=== PATIENT | female | born 1965 | race Caucasian/White ===

== ENCOUNTER 2017-03-26 21:06 | Emergency (ER) | payer MEDICAID, OTHER ==
[2017-03-26 21:35] LABS: ABSOLUTE BASOPHILS # (AUTO) 0.1 10^3/uL (0.0-0.2); ABSOLUTE EOSINOPHILS # (AUTO) 0.2 10^3/uL (0.0-0.6); ABSOLUTE LYMPHOCYTES (AUTO) 3.4 10^3/uL (0.5-4.7); ABSOLUTE MONOCYTES (AUTO) 0.6 10^3/uL (0.1-1.4); ABSOLUTE NEUT (AUTO) 3.1 10^3/uL (1.7-8.2); BASOPHILS % (AUTO) 1.2 % (0-2); EOSINOPHILS % (AUTO) 2.3 % (0-6); HEMATOCRIT 42.5 % (36.0-47.0); HEMOGLOBIN 14.5 g/dL (12.0-15.5); LYMPHOCYTES % (AUTO) 46.5 % (13-45); MEAN CORPUSCULAR HEMOGLOBIN 30.9 pg (27.0-33.4); MEAN CORPUSCULAR HGB CONC 34.2 g/dL (32.0-36.0); MEAN CORPUSCULAR VOLUME 90 fl (80-97); MONOCYTES % (AUTO) 8.3 % (3-13); RED CELL DISTRIBUTION WIDTH 14.2 % (11.5-14.0); SEGMENTED NEUTROPHILS % (AUTO) 41.7 % (42-78); WHITE BLOOD COUNT 7.3 10^3/uL (4.0-10.5)
[2017-03-26 21:46] LABS: PARTIAL THROMBOPLASTIN TIME 26.6 SEC (23.5-35.8); PROTHROMBIN TIME 12.9 SEC (11.4-15.4)
[2017-03-26 22:02] LABS: ALANINE AMINOTRANSFERASE 101 U/L (9-52); ALBUMIN 4.8 g/dL (3.5-5.0); ALCOHOL < 10 mg/dL (NONE DETECTED); ALKALINE PHOSPHATASE 116 U/L (38-126); ANION GAP 13 (5-19); ASPARTATE AMINO TRANSFERASE 102 U/L (14-36); BILIRUBIN,DIRECT 0.5 mg/dL (0.0-0.4); BILIRUBIN,TOTAL 0.7 mg/dL (0.2-1.3); BLOOD UREA NITROGEN 17 mg/dL (7-20); CALCIUM 10.5 mg/dL (8.4-10.2); CARBON DIOXIDE 26 mmol/L (22-30); CHLORIDE 99 mmol/L (98-107); CREATINE KINASE 96 U/L (30-135); GLUCOSE 114 mg/dL (75-110); POTASSIUM 4.1 mmol/L (3.6-5.0); TOTAL PROTEIN 9.5 g/dL (6.3-8.2)
[2017-03-26 22:13] LABS: CREATINE KINASE MB 0.71 ng/mL (<4.55)
[2017-03-26 22:14] LABS: TROPONIN I < 0.012 ng/mL
--- NOTE | 2017-03-26 22:30 | ER Document Report ---
ED General - General Chief Complaint: S/S of Possible Stroke Stated Complaint: STROKE LIKE SYMPTOMS Time Seen by Provider: 03/26/17 21:43 Notes: Patient is a 51-year-old female past medical history of PNES, depression, anxiety, seizures, hypertension who presents with a 45 minute episode of unstoppable crying. Patient states she does not recall this episode but family at the bedside states that she was intermittently talking during the episode. She has history of similar episodes in the past. No noted loss of consciousness , tonic-clonic jerking, or postictal phase. She has not seen her primary care doctor regarding today's concerns. No obvious trigger for today's episode. At time of my assessment she denies any acute concerns or complaints. Past Medical History - General Information source: Patient - Social History Smoking Status: Current Every Day Smoker Frequency of alcohol use: None Drug Abuse: None Lives with: Spouse/Significant other Family History: Reviewed & Not Pertinent Review of Systems - Review of Systems Notes: Constitutional: Negative for fever. HENT: Negative for sore throat. Eyes: Negative for visual changes. Cardiovascular: Negative for chest pain. Respiratory: Negative for shortness of breath. Gastrointestinal: Negative for abdominal pain, vomiting or diarrhea. Genitourinary: Negative for dysuria. Musculoskeletal: Negative for back pain. Skin: Negative for rash. Neurological: Negative for headaches, weakness or numbness. 10 point ROS negative except as marked above and in HPI. Physical Exam - Vital signs Vitals: Resp Pulse Ox 18 84 L 03/26/17 21:19 03/26/17 21:19 Patient was not hypoxic at time of arrival this is inaccurately recorded vital sign. Interpretation: Normal Notes: PHYSICAL EXAMINATION: GENERAL: Well-appearing, well-nourished and in no acute distress. HEAD: Atraumatic, normocephalic. EYES: Pupils equal round and reactive to light, extraocular movements intact, sclera anicteric, conjunctiva are normal. ENT: nares patent, oropharynx clear without exudates. Moist mucous membranes. NECK: Normal range of motion, supple without lymphadenopathy LUNGS: Breath sounds clear to auscultation bilaterally and equal. No wheezes rales or rhonchi. HEART: Regular rate and rhythm without murmurs ABDOMEN: Soft, nontender, normoactive bowel sounds. No guarding, no rebound. No masses appreciated. EXTREMITIES: Normal range of motion, no pitting or edema. No cyanosis. NEUROLOGICAL: Face symmetric. Tongue protrudes midline. Extraocular motions intact. Pupils are 2 mm and equally reactive. Normal speech, normal gait. 5 out of 5 strength in both the distal and proximal upper and lower extremities bilaterally. Sensation is grossly intact throughout. Finger to nose testing normal. Pronator drift normal. PSYCH: Normal mood, normal affect. SKIN: Warm, Dry, normal turgor, no rashes or lesions noted. Course - Re-evaluation Re-evalutation: 03/26/17 22:27 Patient presents with symptoms had a history consistent with PNES. Clinical history is inconsistent with an epileptic seizure and I do not believe any imaging or labs as indicated. [facility] department for assessment for panel labs and CT imaging of the head was obtained which are noted to be unremarkable with exception of mild LFT elevations which I do not suspect a clinically significant patient's presentation. Neurologic exam unremarkable without any focal neurologic deficits. No trauma sustained during today's episode. The patient does have a history of similar episodes in the past as well as a psychiatric history.At this time will discharge with return precautions and follow-up recommendations. Verbal discharge instructions given a the bedside and opportunity for questions given. Medication warnings reviewed. Patient is in agreement with this plan and has verbalized understanding of return precautions and the need for primary care follow-up in the next 24-72 hours. - Vital Signs Vital signs: Temp Pulse Resp BP Pulse Ox 98.2 F 14 167/104 H 98 03/26/17 22:35 03/26/17 22:45 03/26/17 22:45 03/26/17 22:45 - Laboratory Result Diagrams: 03/26/17 21:28 03/26/17 21:28 Laboratory results interpreted by me: 03/26/17 03/26/17 21:28 21:28 RDW 14.2 H Seg Neutrophils % 41.7 L Lymphocytes % 46.5 H Creatinine 1.40 H Est GFR ( Amer) 48 L Est GFR (Non-Af Amer) 40 L Glucose 114 H Calcium 10.5 H Direct Bilirubin 0.5 H AST 102 H ALT 101 H Total Protein 9.5 H - Diagnostic Test Radiology reviewed: Image reviewed, Reports reviewed Radiology results interpreted by me: 03/26/17 22:27 CT Head: No acute intracranial bleed Discharge - Discharge Clinical Impression: Pseudoseizure, Anxiety Condition: Good Disposition: HOME, SELF-CARE Additional Instructions: Your symptoms today are not consistent with an epileptogenic seizure ("brain seizure") and are more consistent with an emotional seizure also known as PNES or a pseudoseizure. Please follow closely with her primary care doctor regarding today's episode. Return if your current episode, severe headache, focal weakness, numbness, or any other symptoms that are worrisome to you.
--- NOTE | 2017-03-26 22:42 | EKG REPORT ---
SEVERITY:- ABNORMAL ECG - SINUS RHYTHM PROBABLE LEFT ATRIAL ABNORMALITY PROBABLE LEFT VENTRICULAR HYPERTROPHY : Confirmed by: Eileen Bobby 26-Mar-2017 22:41:26
[2017-03-26 22:58] LABS: URINE BARBITURATES SCREEN NEGATIVE; URINE METHADONE SCREEN NEGATIVE; URINE OPIATES LOW NEGATIVE; URINE PHENCYCLIDINE SCREEN NEGATIVE
[2017-03-26 22:59] VITALS: BP 167/104
== END 2017-03-26 23:04 | disposition home or self-care (01) ==
LOC: ER 21:06
DX: F44.5 Conversion disorder with seizures or convulsions (principal); F41.9 Anxiety disorder, unspecified; R79.89 Other specified abnormal findings of blood chemistry; I10 Essential (primary) hypertension; F17.200 Nicotine dependence, unspecified, uncomplicated
CPT/HCPCS: 36415; 70450; 71010; 80053; 80307; 82550; 82553; 84484; 85025; 85610; 85730; 93005; 93010; 99285